=== PATIENT | male | born 1950 | race Caucasian/White ===

== ENCOUNTER 2020-04-03 14:56 | Emergency (ER) | payer MEDICARE, OTHER, SELFPAY ==
[2020-04-03 15:12] VITALS: BP 119/71; PULSE 67; RESP 16; TEMP 36.4; O2SAT 98
--- NOTE | 2020-04-03 15:24 | ED.WOUNDLAC ---
HPI - Wound/Laceration General Chief Complaint: Wound/Laceration Stated Complaint: injury right 3rd finger Time Seen by Provider: 04/03/20 15:17 Source: patient and RN notes reviewed Mode of arrival: ambulatory Limitations: no limitations History of Present Illness HPI narrative: Patient presents today complaining of a splinter underneath his right third fingernail. It has been present since 1300. Made of wood. has repeatedly attempted to remove it at home, but this causes too much pain. Patient is up-to-date on his tetanus vaccine. Location: other (Right third finger) Related Data Home Medications Medication Instructions Recorded Confirmed aspirin 04/03/20 levothyroxine 04/03/20 losartan 04/03/20 olmesartan 04/03/20 omeprazole 04/03/20 simvastatin mg 04/03/20 Allergies Allergy/AdvReac Type Severity Reaction Status Date / Time acetaminophen Allergy Unknown hallucinati Verified 09/21/15 16:14 ons hydrocodone Allergy Unknown hallucinati Verified 09/21/15 16:14 ons Review of Systems Review of Systems: Narrative: CONSTITUTIONAL: Denies body aches, fever, chills, or sweats. EYES: Denies visual changes, redness, or discharge. ENT: Denies rhinorrhea, congestion, sore throat, or otalgia. CARDIOVASCULAR: Denies chest pain, palpitations, or edema. RESPIRATORY: Denies cough or dyspnea. GASTROINTESTINAL: Denies abdominal pain, nausea, vomiting, or diarrhea. GENITOURINARY: Denies dysuria or hematuria. SKIN: Denies rash, itching. + Under underneath right third fingernail MUSCULOSKELETAL: Denies back pain, joint pain, or myalgia. NEUROLOGIC: Denies headache, numbness, tingling, or weakness. PSYCH: Denies depression or anxiety. [facility] Past Medical History Medical History (Updated 04/03/20 @ 15:38 by Chantell Chamberlain, [facility], ) Hypercholesterolemia Hypertension Hypothyroidism Prostate cancer Comments At time of signature, I have reviewed and agree with nursing past medical, surgical, social and family history unless otherwise noted. Please see nursing chart for further information. There is no relevant family history pertinent to the presenting complaint Exam Narrative: Exam Narrative: GENERAL: Well-appearing, well-nourished, and in no acute distress. HEAD: Normocephalic, atraumatic. EYES: EOMI. No redness or drainage. Conjunctivae normal. ENT: Mucous membranes pink and moist. NECK: Normal AROM. CHEST: No respiratory distress. EXTREMITIES: Normal range of motion. No edema. SKIN: Warm, dry, no rash. Capillary refill normal. Normal skin turgor. Approximately 2 mm splinter noted just underneath patient's right third fingernail. NEURO: No focal deficits. Alert and oriented x3. Gait steady. PSYCH: Normal affect. No signs of depression or anxiety. Course Vital Signs Vital signs: Vital Signs Temperature 97.6 F 04/03/20 15:12 Pulse Rate 67 04/03/20 15:12 Respiratory Rate 16 04/03/20 15:12 Blood Pressure 119/71 04/03/20 15:12 Pulse Oximetry 98 04/03/20 15:12 Temperature 97.6 F 04/03/20 15:12 Pulse Rate 67 04/03/20 15:12 Respiratory Rate 16 04/03/20 15:12 Blood Pressure 119/71 04/03/20 15:12 Pulse Oximetry 98 04/03/20 15:12 Reviewed Procedures Foreign Body Removal Foreign Body #1: Foreign Body Removal Date: 04/03/20 Foreign Body Removal Time: 15:27 Time Out Performed: yes Site: right and upper extremity (Third finger) Description of foreign body: other (Splinter) Sedation/Analgesia: other (Lidocaine digital block) Technique: removal with forceps Nerve Block Nerve Block 1: Nerve block date: 04/03/20 Nerve block time: 15:26 Time out performed: Yes Local Anesthetic: lidocaine 1% Amount of anesthesia used (mL): 6 Side: right Nerve Blocks: digital (Third finger) Procedure Successful: Yes Patient Tolerated Procedure: well Complications:
== END 2020-04-03 15:40 | disposition home or self-care (01) ==
PROVIDERS: Emergency Provider Nurse Practitioner; PCP Internal Medicine
DX: S60.452A Superficial foreign body of right middle finger, initial encounter (principal); I10 Essential (primary) hypertension; E78.00 Pure hypercholesterolemia, unspecified; E03.9 Hypothyroidism, unspecified; Z85.46 Personal history of malignant neoplasm of prostate; W45.8XXA Other foreign body or object entering through skin, initial encounter
CPT/HCPCS: 99212; G0463